=== PATIENT | male | born 1930 | race Caucasian/White ===

== ENCOUNTER 2019-02-15 04:06 | Inpatient (IN) | payer MEDICARE, BC ==
[~2019-02-15] VITALS: Ht 162.6 cm; Wt 54.5 kg
[~2019-02-15 04:06] MED LIST: AMLOPIDINE; ATARAX; ATIVAN 0.50.5 MG/TAB PO; CELEXA10 MG PO; CLINDAMYCIN150 MG PO; DILANTIN 100MG100 MG PO; FLOMAX 0.40.4 MG/CAP PO; LORTAB 5/500 501 TAB PO; MAALOX ANTACID1 TAB PO; NAMENDA 10MG TA10 MG PO; PEPCID 20MG TAB20 MG PO; POTASSIUM CH2 MEQ/ML; REMERON 15M15 MG/TA1 PO; REMERON 15M15 MG/TAB PO; RISPERDAL 0.5M0.5 MG PO; SEROQUEL; SEROQUEL 2525 MG/TAB PO; SEROQUEL100 MG PO; SEROQUEL50 MG PO; TYLENOL 325MG325 MG PO; VIT; VITAMIN C500 MG PO; XANAX .25M0.25 MG/TA PO; XANAX0.25 MG PO; ZANTAC; ZOCOR 20MG20 MG PO; ZOCOR40 MG PO
[2019-02-15] MEDS ORDERED: PEPCID 20MG TAB20 MG PO (04:22)
[2019-02-15] MEDS ORDERED: DESYREL 50MG50 MG PO (04:25)
[2019-02-15 05:10] LABS: BASO # 0.1 (0.0-0.2); BASO % 0.3 % (0.0-2.0); EOS % 0.1 % (0-4.0); GRAN # 12.9 (1.4-6.5); GRAN % 88.5 % (42.2-75.2); HEMATOCRIT 38.3 % (42.0-52.0); LYMPH # 0.7 (1.2-3.4); MEAN CELL VOLUME 96 fl (80.0-100.0); MEAN CORPUSCULAR HEMOGLOBIN 33 pg (27.0-31.0); MEAN CORPUSCULAR HGB CONC 34 g/dl (33.0-37.0); MONO # 0.8 (0.1-0.6); MONO % 5.7 % (1.7-9.3); PLATELET COUNT 221 K/mm3 (130-400); RED BLOOD COUNT 3.98 M/mm3 (4.20-5.60); REDCELL DISTRIBUTION WIDTH-CV 13.5 % (11.5-14.5)
[2019-02-15 05:19] LABS: INR 1.4 (0.8-3.0); PROTHROMBIN TIME 16.6 SECONDS (9.7-12.8)
[2019-02-15 05:23] LABS: ALBUMIN 3.4 gm/dL (3.5-5.0); BILIRUBIN,TOTAL 0.8 mg/dL (0.0-1.0); CALCIUM 8.3 mg/dL (8.4-10.2); CREATININE, serum 0.76 (0.66-1.25); POTASSIUM 3.7 mmol/L (3.4-5.0); TOTAL PROTEIN 6.1 gm/dL (6.4-8.2)
--- NOTE | 2019-02-15 09:30 | NUR ---
arrived on unit per cart from emergency department and radiology, assisted with slide board over and into bed, pulling at right leg and crying out with movement, son and [id number] at bedside, Randall Shoemaker SCRAP HOIST OPERATOR in to visit with family
[2019-02-15 09:51] VITALS: BP 115/54; PULSE 84; TEMP 99.4
--- NOTE | 2019-02-15 10:38 | NUR ---
Initial visit; Patient and his family were receptive to Spray Unit Feeder offering a God's blessings for Humberto.
--- NOTE | 2019-02-15 10:50 | NUR ---
admission assessment completed, Dr Payton and care team in to see patient, neuro assessment completed, patient was able to follow some commands, was medicated with morphine 2mg slow IV for moaning and restless, Dr Payton will notify orthopaedics regarding postponing surgery at this time, family will go home now for a short time
[2019-02-15 11:05] LABS: COLLECTION METHOD CATHETER
[2019-02-15 11:11] LABS: PH 7 (5-8); SQUAMOUS EPITHELIAL 0-2 /hpf; URINE APPEARANCE Clear; URINE BACTERIA None Seen /hpf; URINE BILIRUBIN Negative (NEGATIVE); URINE BLOOD Negative (NEGATIVE); URINE COLOR Yellow; URINE GLUCOSE Negative (NEGATIVE); URINE KETONE Negative (NEGATIVE); URINE LEUKOCYTE ESTERASE Negative (NEGATIVE); URINE NITRATE Negative (NEGATIVE); URINE PROTEIN(semi-quant) Negative (NEGATIVE); URINE RBC 0-2 /hpf
--- NOTE | 2019-02-15 11:41 | NUR ---
resting quietly in bed with eyes closed, resp are quiet and easy and no moaning or grimacing or pulling at right hip
[2019-02-15 12:31] VITALS: BP 144/53; PULSE 96; TEMP 98.7
--- NOTE | 2019-02-15 12:50 | NUR ---
appears to continue to sleep, remains in bed with eyes closed and resp quiet and easy, no grimacing or moaning
--- NOTE | 2019-02-15 13:27 | NUR ---
awake and repositioned up into bed for lunch, is awake and says he is ready to eat, family back at bedside and will assist him as needed
--- NOTE | 2019-02-15 14:45 | NUR ---
appears to be sleeping, in bed with eyes closed, resp quiet and easy, family remains at bedside
--- NOTE | 2019-02-15 16:10 | NUR ---
resting in bed, awakened and neuro checks completed which are difficult to complete with patient's history, son and [id number] at bedside and feel he is at his baseline
[2019-02-15 16:19] VITALS: BP 111/50; PULSE 79; TEMP 98.5
--- NOTE | 2019-02-15 16:22 | NUR ---
Fbi Sharpshooter met with the patient, the patient's son Yaya (ph#[phone]), and patient's daughter in law Tierney (ph#[phone]) to discuss discharge planning. Patient's son and daughter in law answered RODY's questions during intake. Patient lives in [place] with his son and daughter in law. Patient requires some assistance with bathing, which is currently provided by Tierney's granddaughter, Dianelys Santana who is a DISH MAKER. Patient has occasional incontinence, but is mostly independent per son's report. Patient's son states attempts have been made to obtain DME for patient, however patient is not compliant with DME. Patient sees Dr. Hernandez for primary care and obtains medications from [facility]. Patient's son reports Advance Directives have been completed and he will bring a copy in to the hospital. SW discussed possible prison placement with patient's son and daughter in law, who were in agreeance. Patient's son reports patient may be resistant to prison placement. RODY presented the Medicare.gov list of prison facilities. Patient's son chose [facility] as first choice and [facility] as second choice. SW presented the Choice Form and obtained patient's son's signature before placing in patient's chart. SW provided a copy to the patient's son. SW faxed referrals to placement choices.
--- NOTE | 2019-02-15 17:25 | NUR ---
repositioned up in bed and assisted with sitting up to eat supper
--- NOTE | 2019-02-15 17:50 | NUR ---
had supper and tolerated well, is beginning to grimace and move about in bed and appears to be in pain, medicated with morphine 2mg slow IV
--- NOTE | 2019-02-15 18:45 | NUR ---
appears to be sleeping now, bedside shift report given to NONA Thornton
[2019-02-15 20:00] VITALS: BP 116/59; PULSE 76; TEMP 98.3
[2019-02-16] VITALS (13 sets, daily range): BP systolic 78–129; BP diastolic 18–70; PULSE 69–90; TEMP 97.9–98.7
--- NOTE | 2019-02-16 00:29 | NUR ---
PATIENT DOING WELL TONIGHT. NEURO CHECKS DIFFICULT WITH PATIENTS HISTORY. PUPILS ARE PINPOINT AND FIXED. PATIENT MOVES ABOUT IN BED WHEN AGITATED. IV MORPHINE WAS GIVEN AFTER AN EPISODE OF IRRIATION. PATIENT WAS FOUND UNDRESSING HIMSELF IN BED AND TRYING TO TAKE OUT HIS CATHETER. TRIED TO REORIENT PATIENT WITH DIFFICULTY. PATIENT APPEARS TO ONLY BE ABLE TO SAY 'YES'. THERE ARE NO ORDERS FOR NPO, HOWEVER PATIENT WAS MADE NPO PER REPORTS OF PREVIOUS NURSE AND POSSIBLE SURGERY TOMORROW. NOTED DIFFICULTY SWALLOWING SCHEDULED MEDICATIONS. CARDOZO IS DRAINING CLEAR YELLOW URINE. IV TO R FA IS PATENT AND INFUSING D5 1/2NS AT 75 ML/HR. SEE ASSESSMENT. NO FURTHER NEEDS AT THIS TIME. WILL CONTINUE TO MONITOR.
[2019-02-16 07:12] LABS: BASO % 0.3 % (0.0-2.0); EOS % 0.3 % (0-4.0); GRAN # 9.2 (1.4-6.5); GRAN % 79.7 % (42.2-75.2); HEMOGLOBIN 11.1 g/dl (13.5-18.0); MEAN CELL VOLUME 99 fl (80.0-100.0); MEAN CORPUSCULAR HEMOGLOBIN 33 pg (27.0-31.0); MEAN CORPUSCULAR HGB CONC 33 g/dl (33.0-37.0); MEAN PLATELET VOLUME 10.4 fl (7.4-10.4); MONO # 1.2 (0.1-0.6); MONO % 10.3 % (1.7-9.3); PLATELET COUNT 186 K/mm3 (130-400); RED BLOOD COUNT 3.42 M/mm3 (4.20-5.60); REDCELL DISTRIBUTION WIDTH-CV 13.8 % (11.5-14.5)
[2019-02-16 07:13] LABS: HEMATOCRIT 33.7 % (42.0-52.0)
[2019-02-16 07:24] LABS: CALCIUM 7.6 mg/dL (8.4-10.2); CREATININE, serum 0.75 (0.66-1.25); POTASSIUM 3.8 mmol/L (3.4-5.0)
--- NOTE | 2019-02-16 16:46 | NUR ---
[employer] faxed updates to [facility] and [facility]. SW will continue to follow.
--- NOTE | 2019-02-16 21:00 | NUR ---
Patient takes HS meds crushed in applesauce. Has mitts on both hands due to pulling at IV and jacob catheter. Has dry drsgs to right hip with ice pack in place. Pt oriented to self.
[2019-02-17] VITALS (8 sets, daily range): BP systolic 87–129; BP diastolic 42–67; PULSE 82–114; TEMP 97.5–98.6
--- NOTE | 2019-02-17 00:05 | NUR ---
Patient complains of pain. Medicated with [place] 7.5mg 1 tab crushed in pudding. Mitts on both hands continue.
--- NOTE | 2019-02-17 04:30 | NUR ---
Patient taking gown off and pulling at his catheter. Mitts replaced. When asked if he was in pain he stated "yes". Medicated with [place] 7.5mg 1 now.
--- NOTE | 2019-02-17 06:00 | NUR ---
Resting well with mitts on.
[2019-02-17 07:16] LABS: HEMATOCRIT 28.4 % (42.0-52.0); HEMOGLOBIN 9.3 g/dl (13.5-18.0)
--- NOTE | 2019-02-17 13:29 | NUR ---
Patient resting in bed with eyes closed, mitts remain on bilateral hands. Inicision to right hip, gauze in place remains CDI. Bed in lowest position, call light within reach. Reported off to NONA Beasley.
--- NOTE | 2019-02-17 14:57 | NUR ---
Gas Tester spoke with Dejon at [facility] who advised they can accept patient referral. SW contacted [place] at [facility] to notify that first preference accepted. SW attempted to speak with patient, but patient was asleep. SW contacted son, Yaya (ph#[phone]) to update on accepted referral and to speak about IM form. Yaya will be in tomorrow morning to sign the form. RODY will continue to follow.
--- NOTE | 2019-02-17 19:23 | NUR ---
Pt doing ok. Family in room with patient. Stated patient drank 100% of milkshake, few sips of water, and half of ensure shake. Patient is awake, still trying to pull of mits. On o2 at 2l. Has D5 running in left forearm. Does not speak any words. Has 2 sites to right hip, one site covered with gauze and tap, other with bandaid. Both CD&I. Family denies needs at this time. Call light within reach, will continue to monitor
[2019-02-18 04:00] VITALS: BP 118/50; PULSE 95; TEMP 98.4
--- NOTE | 2019-02-18 07:05 | NUR ---
appears to be sleeping, bedside shift report received from NONA Valdivia
[2019-02-18 07:16] LABS: BASO # 0.1 (0.0-0.2); BASO % 0.4 % (0.0-2.0); EOS # 0.2 (0.0-0.7); EOS % 1.3 % (0-4.0); GRAN # 9.4 (1.4-6.5); LYMPH # 1.3 (1.2-3.4); LYMPH % 11.1 % (20.0-51.0); MEAN CELL VOLUME 96 fl (80.0-100.0); MEAN CORPUSCULAR HGB CONC 33 g/dl (33.0-37.0); MEAN PLATELET VOLUME 10.9 fl (7.4-10.4); MONO # 0.9 (0.1-0.6); MONO % 7.8 % (1.7-9.3); PLATELET COUNT 155 K/mm3 (130-400); RED BLOOD COUNT 2.65 M/mm3 (4.20-5.60); REDCELL DISTRIBUTION WIDTH-CV 13.4 % (11.5-14.5)
[2019-02-18 07:27] LABS: HEMATOCRIT 25.5 % (42.0-52.0); HEMOGLOBIN 8.4 g/dl (13.5-18.0); MEAN CORPUSCULAR HEMOGLOBIN 32 pg (27.0-31.0)
[2019-02-18 07:28] VITALS: BP 108/53; PULSE 102; TEMP 101.2
--- NOTE | 2019-02-18 07:30 | NUR ---
assisted with sitting up in bed and assisted him with having breakfast, only had small amount and approx 200ml ensure, full assessment completed at this time
[2019-02-18 07:33] LABS: CALCIUM 7.2 mg/dL (8.4-10.2); CREATININE, serum 0.86 (0.66-1.25); POTASSIUM 3.7 mmol/L (3.4-5.0)
--- NOTE | 2019-02-18 08:49 | NUR ---
awake now resting in bed, son and [id number] at bedside now, physical therapy in to assist him with tgetting out of bed
--- NOTE | 2019-02-18 10:00 | NUR ---
IV site leaking and discontinued by student RN, gerardo removed, son and ISABELLE remain at bedside and will notify staffif he tries to remove catheter
--- NOTE | 2019-02-18 10:07 | NUR ---
reviewed assessment completed by student and in agreement with that assessment
--- NOTE | 2019-02-18 10:21 | NUR ---
Vancomycin Initial Dosing Pharmacy Note Ordering provider: Jono Fuentes MD Indication/duration: EMPIRIC, FEVER W/ RECENT SURGERY Relevant comorbidities: LABS: SCr 0.86, CrCl ~30, WBC 11.9, TEMP 101.2 F Recommendation: VANCOMYCIN 17 MG/KG Loading dose: NONE Maintenance dose: 750 mg every 24 hours Trough goal: 15-20 ug/mL, TROUGH 02/22 @ 1000.
--- NOTE | 2019-02-18 10:30 | NUR ---
Dr Payton and care team in to see patient, new orders received, IV started by student RN and jacob clamped in order to obtain UA, pateint was cooperative while IV started
--- NOTE | 2019-02-18 10:57 | NUR ---
Head End Desizing Machine Operator met with son, Yaya who advised discharge would possibly occur on Thursday. RODY presented IM form, but explained another one may need to be signed if discharge does occur on Thursday. Yaya understood rights and provided signature. RODY placed original in chart and provided copy to Yaya. RODY will continue to follow.
--- NOTE | 2019-02-18 11:20 | NUR ---
Sterile UA drawn from jacob cath. Specimen sent to lab. Jacob discontinued after. Patient handled well.
[2019-02-18 11:21] LABS: MUCOUS Present /lpf; PH 6 (5-8); SQUAMOUS EPITHELIAL None Seen /hpf; URINE APPEARANCE Clear; URINE BACTERIA None Seen /hpf; URINE BILIRUBIN Negative (NEGATIVE); URINE BLOOD 2+ (NEGATIVE); URINE COLOR Yellow; URINE GLUCOSE Negative (NEGATIVE); URINE KETONE Negative (NEGATIVE); URINE LEUKOCYTE ESTERASE Negative (NEGATIVE); URINE NITRATE Negative (NEGATIVE); URINE PROTEIN(semi-quant) 1+ (NEGATIVE); URINE RBC >50 /hpf; URINE UROBILINOGEN >=4.0 mg/dL (NEGATIVE)
[2019-02-18 11:29] LABS: COLLECTION METHOD CLEAN CATCH
[2019-02-18 12:24] VITALS: BP 11/54; BP 111/54; PULSE 89; TEMP 98.7
--- NOTE | 2019-02-18 12:57 | NUR ---
ate almost 100% of lunch with assistance, then assisted back to bed for chest xray, he tried to assist with walking to bed and scooting self up in bed,
--- NOTE | 2019-02-18 13:38 | NUR ---
Patient currently resting in bed with eyes closed. No s/s of pain noted. O2 via NC at 2L. Mitts remain on hands bilaterally. Gauze and band-aid to Right hip remain CDI. Bed in lowest position, call light alex stallings. Reported off to Sammie CASTELLANO.
--- NOTE | 2019-02-18 14:30 | NUR ---
appears to be sleeping, awakened and assisted him with having a small container of chocolate ice cream and remainder of ensure, was able to suck on the straw to take the ensure
--- NOTE | 2019-02-18 15:35 | NUR ---
has been unable to void, bladder scan reveals approx 500ml urine in bladder, straight cath completed and 600ml clear yellow urine returned, tolerated procedure well
[2019-02-18 15:40] VITALS: BP 115/43; PULSE 130; PULSE 94; TEMP 97.8
--- NOTE | 2019-02-18 16:35 | NUR ---
If patient discharged over the weekend, [facility] cannot transport. [facility] can accept and transport.
--- NOTE | 2019-02-18 17:56 | NUR ---
sitting up in bed being fed supper by MAIL MACHINE OPERATOR is eating well, family at bedside
--- NOTE | 2019-02-18 18:00 | NUR ---
started to choke while eating vegetables and had some emesis, assisted up to recliner and care provided, was cooperative while assisting him up
--- NOTE | 2019-02-18 19:00 | NUR ---
bedside shift report given to NONA Linn
[2019-02-18 19:27] VITALS: BP 126/63; PULSE 107; TEMP 99
--- NOTE | 2019-02-18 21:00 | NUR ---
Pt. laying in bed. Pt. is alert and confused. Difficult to deturmine orientations d/t non-verbal hx. of strokes. IV to rt. forearm patent, IV fluids infusing per orders. Dressing to rt. hip CDI. Pt. does not appear to be in pain at this time. Call light within reach, Bed alarm on.
[2019-02-19 00:05] VITALS: BP 143/49; PULSE 110; TEMP 99.1
--- NOTE | 2019-02-19 00:32 | NUR ---
Pt. bladderscanned. Pt. has not urinated throughout shift. Bladder scan reported 450 ml in bladder at this time. Straight cathed pt. able to get 400 mls out. Pt. tolerated well. Pt. able to voice "yes" when asked if pt. was hurting. Pt. given 1 ultram for pain. Pt. does not seem to be as agitated after straight cathing. Call light within reach, bed alarm on.
[2019-02-19 06:41] LABS: BASO % 0.3 % (0.0-2.0); EOS # 0.1 (0.0-0.7); EOS % 1.1 % (0-4.0); GRAN # 8.4 (1.4-6.5); GRAN % 80.8 % (42.2-75.2); LYMPH % 9.2 % (20.0-51.0); MEAN CELL VOLUME 95 fl (80.0-100.0); MEAN CORPUSCULAR HGB CONC 34 g/dl (33.0-37.0); MEAN PLATELET VOLUME 11.3 fl (7.4-10.4); MONO # 0.8 (0.1-0.6); MONO % 7.9 % (1.7-9.3); PLATELET COUNT 166 K/mm3 (130-400); RED BLOOD COUNT 2.32 M/mm3 (4.20-5.60); REDCELL DISTRIBUTION WIDTH-CV 13.2 % (11.5-14.5)
[2019-02-19 06:45] LABS: HEMATOCRIT 22.1 % (42.0-52.0); HEMOGLOBIN 7.4 g/dl (13.5-18.0); MEAN CORPUSCULAR HEMOGLOBIN 32 pg (27.0-31.0)
[2019-02-19 06:47] LABS: ALBUMIN 2.1 gm/dL (3.5-5.0); BILIRUBIN,TOTAL 0.6 mg/dL (0.0-1.0); CALCIUM 7.1 mg/dL (8.4-10.2); CREATININE, serum 0.73 (0.66-1.25); POTASSIUM 3.5 mmol/L (3.4-5.0); TOTAL PROTEIN 4.5 gm/dL (6.4-8.2)
[2019-02-19 08:08] VITALS: BP 119/52; PULSE 95; TEMP 99.9
--- NOTE | 2019-02-19 10:00 | NUR ---
Patient resting in bed at this time. Patient rouses easily, but returns to sleep. Previous shift reports that the patient has been straight cathed for urine retention twice in the last 12 hours, the last time at 0000, and patient is still dry. Bladder scan shows approximatley 500ml in the bladder, patient does not appear uncomfortable. Called hospitalist for further orders, recieved TORB for jacob catheter placement for urine retention. Placed a 16f coude catheter, approximately 650ml of clear yellow urine returned upon placement, significant resistance felt during placement from the prostate. Patient tolerated procedure well. Patient is nonverbal but does not seem to be in pain or distress. Dressings on right hip are CDI.
[2019-02-19 12:18] VITALS: BP 126/47; PULSE 89; TEMP 98.8
[2019-02-19 16:08] VITALS: BP 106/46; PULSE 85; TEMP 97.8
[2019-02-19 16:23] VITALS: BP 127/41; PULSE 89; TEMP 98.1
--- NOTE | 2019-02-19 18:24 | NUR ---
Patient c/o pain this afternoon, administered PRN medication per order. Patient appeared more comfortable after medication administration. Patient has eaten meals with assistance of staff today, however he only eats 15-20% of his meal before refusing. Patient has continued to run a low grade fever today, but it has not spiked today. Patient currently resting comfortably, bed alarm on, visible from nurses station.
[2019-02-19 19:50] VITALS: BP 119/52; PULSE 90; TEMP 98.2
--- NOTE | 2019-02-19 19:56 | NUR ---
Lying in bed. Repositioned and pillow placed below and to side of right leg. Takes evening medication without difficulty. Escobar draining clear yellow urine. Dressing to right hip CDI. Bruising noted to right hip and right flank area.
--- NOTE | 2019-02-19 21:44 | NUR ---
Lying in bed with eyes closed. Respirations even and unlabored. No signs or symptoms of discomfort noted.
--- NOTE | 2019-02-20 02:10 | NUR ---
IV site in right forearm unable to flush. Site dc'd with catheter intact. Applied 2x2 to site and reinforced with tape. IV restarted in right outer forearm times two sticks. Blood flash returned, site flushes without difficulty. Site reinforced with tegaderm and tape. Repositioned patient in bed. Catheter care provided. Patient took several drinks of water. SpO2 88% on 2L/NC. Oxygen increased to 3L/NC and SpO2 increases to 93%.
[2019-02-20 02:26] VITALS: BP 119/49; PULSE 92; TEMP 99.5
--- NOTE | 2019-02-20 04:08 | NUR ---
Lying in bed with eyes closed. Respirations even and unlabored. No signs or symptoms of discomfort noted.
[2019-02-20 06:54] LABS: BASO # 0.1 (0.0-0.2); BASO % 0.5 % (0.0-2.0); EOS # 0.2 (0.0-0.7); EOS % 1.7 % (0-4.0); GRAN # 7.8 (1.4-6.5); GRAN % 77.3 % (42.2-75.2); LYMPH # 1.1 (1.2-3.4); LYMPH % 11.2 % (20.0-51.0); MEAN CELL VOLUME 94 fl (80.0-100.0); MEAN CORPUSCULAR HGB CONC 34 g/dl (33.0-37.0); MEAN PLATELET VOLUME 11.6 fl (7.4-10.4); MONO # 0.9 (0.1-0.6); MONO % 8.8 % (1.7-9.3); PLATELET COUNT 173 K/mm3 (130-400); RED BLOOD COUNT 2.46 M/mm3 (4.20-5.60); REDCELL DISTRIBUTION WIDTH-CV 13.4 % (11.5-14.5)
[2019-02-20 07:01] LABS: HEMOGLOBIN 7.9 g/dl (13.5-18.0); MEAN CORPUSCULAR HEMOGLOBIN 32 pg (27.0-31.0)
[2019-02-20 07:04] LABS: ALBUMIN 2.4 gm/dL (3.5-5.0); BILIRUBIN,TOTAL 0.8 mg/dL (0.0-1.0); CALCIUM 7.3 mg/dL (8.4-10.2); CREATININE, serum 0.65 (0.66-1.25); POTASSIUM 4.2 mmol/L (3.4-5.0)
[2019-02-20 07:34] VITALS: BP 116/69; PULSE 94; TEMP 98.6
--- NOTE | 2019-02-20 09:00 | NUR ---
Patient resting in bed at this time. Patient does not appear agitated and does not respond with an affirmitive when asked if he is in pain. Patient takes his PO medications with no difficulties. Escobar remains in place draining clear, yellow urine. Patient has no obvious needs at this time, bed alarm on, patient observable from the nurses' station.
[2019-02-20 11:52] VITALS: BP 94/63; PULSE 70; TEMP 98.2
[2019-02-20 16:11] VITALS: BP 120/67; PULSE 99; TEMP 98.5
--- NOTE | 2019-02-20 18:15 | NUR ---
Restless and pulling at bedding. Nodded yes when asked about pain. Medicated with Ultram. Poor appetite.
--- NOTE | 2019-02-20 19:12 | NUR ---
Lying in bed with eyes open. Dressing to right hip CDI. Bruising noted to right hip. Repositioned patient. Right leg propped on pillow and support pillow placed beside right leg. Catheter draining clear yellow urine.
[2019-02-20 19:36] VITALS: BP 113/50; PULSE 91; TEMP 98.9
--- NOTE | 2019-02-20 21:40 | NUR ---
Lying in bed with eyes open. Catheter care performed. Patient smiles when spoken to. Repositioned in the bed. Tegaderm dressing that was to right hip has come off. Bruising noted to right side of hip to mid thigh and up into flank area. Where the dressing was, blisters noted. Incision well approximated, no redness or drainage noted.
[2019-02-20 23:07] VITALS: BP 116/50; PULSE 89; TEMP 98.8
[2019-02-21] VITALS (9 sets, daily range): BP systolic 97–130; BP diastolic 50–83; PULSE 76–102; TEMP 98–98.8
--- NOTE | 2019-02-21 01:06 | NUR ---
Lying in bed with eyes open. Restless moving arms. Patient nonverbal so unable to express what is needed. When patient is asked if he is having pain he makes direct eye contact and his eyes get bigger. Administer pain medication as prescribed. Repositioned onto left side. Provided water to patient.
--- NOTE | 2019-02-21 02:15 | NUR ---
Attempt made to get patient out of bed onto commode as patient keeps touching stomach and when asked if he needs to use the commode patient says "Yah". The entire time getting patient out of bed he is hitting his hands at staff and pushing backwards. Set on commode and the patient continues to hit arms around and not sit still. Patient was able to pass gas while on the commode. Returned patient to bed. Propped right leg up on pillow and placed another pillow beside right leg to give support. Catheter draining clear yellow urine. Patient takes a few sips of water.
--- NOTE | 2019-02-21 03:24 | NUR ---
SpO2 80's. Patient breathing through mouth, not through nose. Oxy mask applied and SpO2 increases to 95%.
--- NOTE | 2019-02-21 03:41 | NUR ---
Lying in bed with eyes closed. Respirations even and unlabored. SpO2 stable at 95% on 3L via Oxy mask. No signs or symptoms of discomfort noted.
--- NOTE | 2019-02-21 06:17 | NUR ---
Lying in bed with eyes open. Keeps removing Oxymask and staff keeps reapplying. Significant amount of bruising to right hip and flank area. Patient winces when right hip is touched and looked at. Incision open to air. Edges well approximated. Blistering noted around incision site where previous dressing was.
[2019-02-21 07:10] LABS: BASO % 0.3 % (0.0-2.0); EOS # 0.1 (0.0-0.7); EOS % 0.6 % (0-4.0); GRAN # 9.8 (1.4-6.5); GRAN % 86.1 % (42.2-75.2); LYMPH # 0.6 (1.2-3.4); LYMPH % 5.2 % (20.0-51.0); MEAN CELL VOLUME 95 fl (80.0-100.0); MEAN CORPUSCULAR HGB CONC 34 g/dl (33.0-37.0); MEAN PLATELET VOLUME 10.5 fl (7.4-10.4); MONO # 0.8 (0.1-0.6); MONO % 7.1 % (1.7-9.3); PLATELET COUNT 237 K/mm3 (130-400); RED BLOOD COUNT 2.17 M/mm3 (4.20-5.60); REDCELL DISTRIBUTION WIDTH-CV 13.4 % (11.5-14.5)
[2019-02-21 07:24] LABS: HEMATOCRIT 20.6 % (42.0-52.0); HEMOGLOBIN 6.9 g/dl (13.5-18.0); MEAN CORPUSCULAR HEMOGLOBIN 32 pg (27.0-31.0)
[2019-02-21 07:29] LABS: CALCIUM 7.4 mg/dL (8.4-10.2); CREATININE, serum 0.68 (0.66-1.25); POTASSIUM 3.7 mmol/L (3.4-5.0)
--- NOTE | 2019-02-21 08:00 | NUR ---
PATIENT IS ALERT BUT VERY CONFUSED. 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 RAISED HOB, CRUSHED AM MEDS AND GAVE IN APPLESAUCE. PATIENT TOLERING MECHANICAL SOFT DIET. A&P LUNG GAN ARE DEMINISHED AND WEAK. SHAFTING WORKER REPORTS PATIENT OXYGEN SATS DROPPED INTO 80'S LAST NIGHT AND WAS PUT ON OXYMASK. APPLIE NASAL CANNULA FOR BREAKFAST. 02 SATS CURRENTLY IN LOW 90'S ON 2L PER NC. ALL OVER VSS. NOTED AM HGB OF 6.9, CALLED RESULT TO HOSPITALIST. SEE ORDERS FOR BLOOD TRANSFUSION. NOTED LOTS OF ECCYMOSIS AROUND POST OP HIP INCISIONS. RIGHT HIP INCISIONS X2 CD&I WITH GAUZE & TEGA. TEDS & SCD'S TO BLE. CARDOZO TO DEPENDENT DRAINAGE WITH MOD AMOUNTS OF CLEAR YELLOW URINE. RIGHT FORARM IV TO INT. HEAD TO TOE ASSESSMENT COMPLETE. CALL LIGHT IN REACH. PATIENT PLANNING TO POSSIBLY DISCHARGE LATER TODAY TO [facility].
--- NOTE | 2019-02-21 09:20 | NUR ---
PHYSICAL THERAPY AT BEDSIDE.
--- NOTE | 2019-02-21 12:43 | NUR ---
STARTED BLOOD TRANSFUSION PER ORDERS. VSS. WILL MONITOR.
--- NOTE | 2019-02-21 14:40 | NUR ---
NOTED RIGHT FORARM IV SITE HAS BLOWN DURING BLOOD TRANSFUSION. PATIENT IS VERY FIDGETY WITH MITTS TO BUE. PATIENT RECEIVED NEARLY THE FULL UNIT OF BLOOD. APPROX 50CC OF BLOOD TRANSFUSION LEFT WHEN IV SITE INFILTRATED. COVERED SITE WITH 4X4 GAUZE & COBAN. CALLED AIVS TO TRY AND RESTART IV. PATIENT IS A DIFFICULT IV START.
--- NOTE | 2019-02-21 14:55 | NUR ---
Pediatrics Teacher spoke with patient RN, Leola who advised plan is for patient to discharge tomorrow if stable. RODY contacted patient's son, Yaya to relay the information. Yaya to sign IM tomorrow morning. RODY contacted Dejon at [facility] to relay information about discharge. RODY faxed updates to [facility]. RODY to continue to follow.
--- NOTE | 2019-02-21 16:55 | NUR ---
PATIENT VERY AGGITATED AND SITTING UP IN BED, PULLING OFF HIS GOWN AND SPILLING THE STUFF OFF HIS BEDSIDE TABLE. GAVE PRN MORPHINE FOR PAIN.
--- NOTE | 2019-02-21 19:26 | NUR ---
Patient restless, has mitts on to protect jacob catheter and IV site. Medicated with [place] 7.5mg 2 tabs with HS meds. Meds crushed in pudding. Oxygen changed from mask to NC. Bed alarm on.
--- NOTE | 2019-02-21 23:50 | NUR ---
PATIENT RESTLESS, APHASIC, TRYING TO TAKE OXYGEN OFF. MEDICATED WITH NORCO 7.5MG 2 TABS AT THIS TIME FOR PAIN.
[2019-02-22] VITALS (7 sets, daily range): BP systolic 101–125; BP diastolic 46–67; PULSE 55–112; TEMP 97.5–98.3
--- NOTE | 2019-02-22 05:09 | NUR ---
Has rested well with administration of [place].
--- NOTE | 2019-02-22 06:20 | NUR ---
Medicated with [place] 7.5mg 2 tabs at this time for pain as evidenced by restless behavior and grimacing.
--- NOTE | 2019-02-22 06:48 | NUR ---
awake and restless in bed, bedside shift report received from NONA Gallardo
--- NOTE | 2019-02-22 07:30 | NUR ---
continues to be restless in bed, repositioned up in bed and assisted with eating breakfast, also given scheduled am meds which he takes without difficulty, mitts remain on hands bilaterally to stop him from pulling at INT and jacob catheter
[2019-02-22 07:51] LABS: BASO % 0.3 % (0.0-2.0); EOS # 0.2 (0.0-0.7); EOS % 1.4 % (0-4.0); GRAN # 9.2 (1.4-6.5); LYMPH % 8.7 % (20.0-51.0); MEAN CELL VOLUME 96 fl (80.0-100.0); MEAN CORPUSCULAR HGB CONC 33 g/dl (33.0-37.0); MEAN PLATELET VOLUME 10.3 fl (7.4-10.4); MONO # 1.2 (0.1-0.6); MONO % 9.9 % (1.7-9.3); PLATELET COUNT 308 K/mm3 (130-400); RED BLOOD COUNT 2.68 M/mm3 (4.20-5.60); REDCELL DISTRIBUTION WIDTH-CV 13.9 % (11.5-14.5)
[2019-02-22 07:54] LABS: HEMATOCRIT 25.6 % (42.0-52.0); HEMOGLOBIN 8.5 g/dl (13.5-18.0); MEAN CORPUSCULAR HEMOGLOBIN 32 pg (27.0-31.0)
[2019-02-22 07:58] LABS: CALCIUM 7.7 mg/dL (8.4-10.2); CREATININE, serum 0.63 (0.66-1.25); MAGNESIUM 2.4 mg/dL (1.6-2.3); POTASSIUM 3.4 mmol/L (3.4-5.0)
--- NOTE | 2019-02-22 08:45 | NUR ---
family in to visit, full assessment completed, see interventions for further info, has large amount bruisng down right chest side and right hip, also to right arm,
[2019-02-22] MEDS ORDERED: OMNICEF 300MG300 MG PO (08:54)
[2019-02-22] MEDS ORDERED: FERRO-TIME325 MG PO (08:54)
[2019-02-22] MEDS ORDERED: TYLENOL 325MG325 MG PO (08:55)
[2019-02-22] MEDS ORDERED: DULCOLAX S10 MG/SUPP RC (08:57)
[2019-02-22] MEDS ORDERED: COLACE 100100 MG/CAP PO (08:57)
[2019-02-22] MEDS ORDERED: NORCO 325 MG-51 TAB PO (08:58)
--- NOTE | 2019-02-22 09:08 | NUR ---
Dr Santo and care team in to see patient, O2 off per Dr Santo
--- NOTE | 2019-02-22 09:45 | NUR ---
very restless in bed, am hygiene provided, he keeps pulling at blankets and unsure of what he needs, when hygiene completed, covered with a warm blanket and will try and let him rest
--- NOTE | 2019-02-22 10:17 | NUR ---
Wood Carving Machine Operator met with patient and patient's son, Yaya following clinical rounds. Patient is to discharge today. RODY presented IM form to Yaya who understood and signed. RODY spoke with NONA Cochran to confirm patient does not require oxygen. RODY faxed discharge orders and contacted Dejon at [facility]. Dejon advised that patient mits may be considered a restraint which could affect acceptance of referral. RODY spoke with NONA Cochran who advised patient has been pulling out his catheter, which he requires. RODY left Dejon a message and will continue to follow to ensure safe discharge.
--- NOTE | 2019-02-22 10:30 | NUR ---
remains very restless in bed and pulling at covers and gown, Dr Santo notified, medicated with seroquel 25mg po O2 sats high 80s on room air
--- NOTE | 2019-02-22 11:02 | NUR ---
continues to move about in bed, when right leg is moved he calls out and says collin, medicated with hydrocodone 7.5mg 1 tab
--- NOTE | 2019-02-22 11:10 | NUR ---
Industrial Robotics Mechanic spoke with Kenney at [facility], which is paient and family's second preference and faxed over updates as first preference may not be able to accept. SW contacted patient's son, Yaya to provide update. SW is awaiting response from first preference. SW updated patient RN, Sammie. SW to continue to follow.
--- NOTE | 2019-02-22 12:00 | NUR ---
called to room and patient had a large amount of undigested projectile emesis, continues to thrash about in bed, DOLL REPAIRER will remain at bedside
--- NOTE | 2019-02-22 12:02 | NUR ---
spoke with Dr Santo regarding patients continued agitation, will hold discharge today, will talk with Danette Trejo in palliative care
--- NOTE | 2019-02-22 12:29 | NUR ---
Left message for son, Yaya on phone. Will try to talk with him in am as he is not available at this time. Primary nurse, Sammie, advised of plan.
--- NOTE | 2019-02-22 12:42 | NUR ---
is resting quietly in bed now with eyes open, APPLE SORTER remains at bedside
--- NOTE | 2019-02-22 13:29 | NUR ---
PRODUCTION ZONE LEADER remains with patietn and states he had another mod amount undigested emesis
--- NOTE | 2019-02-22 13:49 | NUR ---
Dr Santo notified of patient's emesis
--- NOTE | 2019-02-22 13:58 | NUR ---
Dr Santo was in to see patient
--- NOTE | 2019-02-22 14:28 | NUR ---
Decontaminator spoke with Kenney at [facility] who had questions about patient care needs. RODY was notified by patient RN, Sammie that discharge will not occur today. SW contacted patient's son, Yaya to provide update. SW to continue to follow.
--- NOTE | 2019-02-22 15:00 | NUR ---
IV started to right forearm with someone holding his arm, tolerated well, iV fluids started
--- NOTE | 2019-02-22 15:29 | NUR ---
Platform Material Handling Supervisor contacted both [facility] and [facility] to notify that discharge will not occur today.
--- NOTE | 2019-02-22 15:30 | NUR ---
resting in bed, is restless at times and then rests with eyes closed
--- NOTE | 2019-02-22 16:33 | NUR ---
radiology in and abdominal xray completed
--- NOTE | 2019-02-22 17:45 | NUR ---
is in bed and resting quietly at intervals, then awakens and moves about in bed, IV fluids infusing
--- NOTE | 2019-02-22 19:01 | NUR ---
bedside shift report given to NONA Thomson
--- NOTE | 2019-02-22 22:22 | NUR ---
Pt very agitated at beginning of shift. Continues to pull and move around in bed. Moans out but does not communicate. PRN norco given to patient with seems to be no relief.
--- NOTE | 2019-02-22 23:58 | NUR ---
Pt restless in bed, moaning out. PRN morphine given to pt.
[2019-02-23] VITALS: BP 105/89; PULSE 87; TEMP 97.5
--- NOTE | 2019-02-23 02:07 | NUR ---
Pt increasingly combative. Very restless. Is not able to answer yes/no questions. Bruising on right side of hip/abdomen very dark purple in color.
--- NOTE | 2019-02-23 02:47 | NUR ---
Elidia notified of pts condition. PRN seroquel ordered
[2019-02-23 04:00] VITALS: BP 126/64; PULSE 80; TEMP 98
--- NOTE | 2019-02-23 04:57 | NUR ---
Pt very restless, hollering out. Gave seroquel per PRN order. will continue to monitor
[2019-02-23 07:09] LABS: BASO % 0.2 % (0.0-2.0); GRAN # 13.8 (1.4-6.5); LYMPH # 0.7 (1.2-3.4); LYMPH % 4.5 % (20.0-51.0); MEAN CELL VOLUME 96 fl (80.0-100.0); MEAN CORPUSCULAR HGB CONC 33 g/dl (33.0-37.0); MEAN PLATELET VOLUME 10.3 fl (7.4-10.4); MONO # 1.2 (0.1-0.6); MONO % 7.7 % (1.7-9.3); PLATELET COUNT 386 K/mm3 (130-400); RED BLOOD COUNT 2.63 M/mm3 (4.20-5.60); REDCELL DISTRIBUTION WIDTH-CV 14.1 % (11.5-14.5)
[2019-02-23 07:16] LABS: HEMATOCRIT 25.2 % (42.0-52.0); HEMOGLOBIN 8.4 g/dl (13.5-18.0); MEAN CORPUSCULAR HEMOGLOBIN 32 pg (27.0-31.0)
[2019-02-23 07:33] LABS: ALBUMIN 2.8 gm/dL (3.5-5.0); BILIRUBIN,TOTAL 1.3 mg/dL (0.0-1.0); CREATININE, serum 0.7 (0.66-1.25); MAGNESIUM 2.6 mg/dL (1.6-2.3); POTASSIUM 3.7 mmol/L (3.4-5.0); TOTAL PROTEIN 5.6 gm/dL (6.4-8.2)
[2019-02-23 09:10] VITALS: BP 130/88; PULSE 70; TEMP 98.2
--- NOTE | 2019-02-23 10:20 | NUR ---
I have spoken with son Yaya by phone twice this morning about goals of care and concerns with his current behaviors. Yaya is very clear that he believes that his father is not wanting to have catheter, has not had voiding problems previously, and is fightinging wearing the mitts. he believes that if the catheter and mitts could be discontinued, that his father will be much less agitated and willing to work with therapy more. When I presented this to Dr Santo, he was willing to try this approach but wanted son to be aware that this may allow his father to remove his IV and therefore stop hydration and antibiotic administration. Dr Santo is very concerned with the downhill spiral pt has demonstrated and this was also shared with Yaya. Family meeting is set for 1pm on 02/24/19 to further discuss goals of care and how pt has responded.
--- NOTE | 2019-02-23 10:38 | NUR ---
PT INCREASING AGITATION THIS AM. IV ATIVAN GIVEN PRIOR TO MRI. PT RETURNED FROM MRI VERY DROWSEY, AROUSES TO VERBAL THEN FALLS BACK ASLEEP. NEW ORDERS RECIEVED FROM DR GIVENS. JOSELUIS SMART RN HAS FAMILY MEETING SHEDULED FOR TOMMORROW.
[2019-02-23 13:02] VITALS: BP 107/47; PULSE 85; TEMP 98.1
--- NOTE | 2019-02-23 13:39 | NUR ---
CARDOZO CATHETER DISCONTINUED PER ORDERS OF DR. GIVENS, IV TO RFA, SAMIA REMOVED,. PT SLEEPING THROUGH PROCEEDURE.
[2019-02-23 16:07] VITALS: BP 138/61; PULSE 90; TEMP 98.3
--- NOTE | 2019-02-23 16:23 | NUR ---
PT SATS IN LOW 70'S HIGH 60'S OM PLACED AND O2 INCREASED TO 5L. ARIS LIZAMA NOTIFIED DR GIVENS AND HE IS ON FLOOR.
--- NOTE | 2019-02-23 16:27 | NUR ---
Sausage Canner was notified by Danette Palliative RN that patient's son, Yaya will be here at 1:00pm tomorrow for a meeting to review care goals. SW will be in attendance. SW faxed updates to [employer] and [facility] [employer]. SW to continue to follow.
[2019-02-23 17:15] LABS: ARTERIAL BLD GAS O2 SATURATION 93.2 % (92-100); ARTERIAL BLOOD GAS BASE EXCESS -1.1 (-2-2); ARTERIAL BLOOD GAS HCO3 22.1 meq/L (22-26); ARTERIAL BLOOD GAS PCO2 31.6 mmHg (35-45); ARTERIAL BLOOD GAS PO2 68.1 mmHg (80-100); ARTERIAL BLOOD GAS pH 7.46 (7.35-7.45)
[2019-02-23 20:07] VITALS: BP 129/66; PULSE 68; TEMP 98.5
--- NOTE | 2019-02-23 22:05 | NUR ---
Pt has been resting in bed since beginning of shift. Pt 02 sats stable, and received breathing tx from respiratory. No other issues noted. Will continue to monitor
[2019-02-24] VITALS (8 sets, daily range): BP systolic 116–138; BP diastolic 50–75; PULSE 68–97; TEMP 97.3–98.4
--- NOTE | 2019-02-24 00:31 | NUR ---
prn ativan given per Dr. Santo as patient woke up and was extremely agitated. O2 sats running in low 90's. Will continue to monitor
--- NOTE | 2019-02-24 06:39 | NUR ---
pt awake, able to communicate some. State he was having pain in his hip. stated he wanted some pain medicine. will give pain meds
--- NOTE | 2019-02-24 06:42 | NUR ---
PRN MORPHIINE GIVEN TO PATIENT P
--- NOTE | 2019-02-24 07:02 | NUR ---
Report from Claudette CASTELLANO.
--- NOTE | 2019-02-24 07:08 | NUR ---
REPORT FROM LYLE CASTELLANO.
[2019-02-24 07:16] LABS: MEAN CELL VOLUME 99 fl (80.0-100.0); MEAN CORPUSCULAR HGB CONC 32 g/dl (33.0-37.0); MEAN PLATELET VOLUME 10.3 fl (7.4-10.4); RED BLOOD COUNT 3.03 M/mm3 (4.20-5.60); REDCELL DISTRIBUTION WIDTH-CV 14.6 % (11.5-14.5)
[2019-02-24 07:22] LABS: HEMOGLOBIN 9.6 g/dl (13.5-18.0); MEAN CORPUSCULAR HEMOGLOBIN 32 pg (27.0-31.0); PLATELET COUNT 492 K/mm3 (130-400)
[2019-02-24 07:31] LABS: BILIRUBIN,TOTAL 1.3 mg/dL (0.0-1.0); CREATININE, serum 0.69 (0.66-1.25); POTASSIUM 3.4 mmol/L (3.4-5.0); TOTAL PROTEIN 6.1 gm/dL (6.4-8.2)
[2019-02-24 08:00] LABS: BAND 7 % (0-10); LYMPHOCYTE 2 % (20.0-51.0); NEUTROPHILS 91 % (42.0-75.2); PLATELET ESTIMATE NORMAL (NORMAL); SCHISTOCYTES 1+
--- NOTE | 2019-02-24 09:29 | NUR ---
Yard Hand faxed updates to [facility] and [facility].
--- NOTE | 2019-02-24 09:44 | NUR ---
Health Information Internship spoke to Dejon at [facility] who advised due to patient decline, they would not be able to accept at this time.
[2019-02-24 09:55] LABS: INR 1.7 (0.8-3.0); PROTHROMBIN TIME 20.1 SECONDS (9.7-12.8)
--- NOTE | 2019-02-24 13:37 | NUR ---
Family meeting held with Lazara Davidson with rn social services and Danette Sauer RN with son Yaya and his significant other. Son is very firm in wanting to give his father a chance to "fight and get better" but at the same time verbalizes understanding that this will be a long process with "bumps in the road". 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 He is very open to his dad going to the [facility] for a more extended recovery recognizing the many issues that he is dealing with. While he is very hopeful that his father will fight to recover he seems very realistic that this may not be possible and he would not want his father on a ventilator--"just keep him comfortable and let him do what he will do". Son expressed appreciation for the efforts made to this point and will continue to work with the team for the best outcome for his father.
--- NOTE | 2019-02-24 16:44 | NUR ---
Pack Puller attended a family meeting which included Danette, Palliative RN and Hospitalist. Possible discharge to [facility] was discussed. Patient to be put on tele. RODY sent referral to [facility] and made contact with Elliot in regards to referral. SW to continue to follow.
--- NOTE | 2019-02-24 16:45 | NUR ---
PT UNABLE TO VOID, BLADDER SCANNED AND FOUND >600 MLS, STRAIGHT CATH PREFOMED AND DRAINED 500 MLS CONCENTRATED URINE.
--- NOTE | 2019-02-24 16:47 | NUR ---
PT TOLERATED PROCEEDURE PREFORMED BY ADN STUDENT WELL.
--- NOTE | 2019-02-24 21:26 | NUR ---
Pt resting in bed, pm meds given. Patient more alert this evening. Will continue to monitor
[2019-02-25] VITALS (14 sets, daily range): BP systolic 116–131; BP diastolic 50–80; PULSE 68–150; TEMP 97–97.9; O2SAT 36–94
--- NOTE | 2019-02-25 03:31 | NUR ---
Bladder scanned patient, showed 197ml. Will not straight cath at this time
--- NOTE | 2019-02-25 03:50 | NUR ---
Pt overall doing well. Mentation has improved, patient able to answer yes and no questions. No issues with agitation. Patient has slept most of night. No issues.
--- NOTE | 2019-02-25 05:03 | NUR ---
Pt ate about half of applesauce. Drinking water by himelf with straw
[2019-02-25 06:37] LABS: MEAN CELL VOLUME 100 fl (80.0-100.0); MEAN CORPUSCULAR HGB CONC 32 g/dl (33.0-37.0); PLATELET COUNT 516 K/mm3 (130-400); RED BLOOD COUNT 2.75 M/mm3 (4.20-5.60); REDCELL DISTRIBUTION WIDTH-CV 15.3 % (11.5-14.5)
--- NOTE | 2019-02-25 06:37 | NUR ---
Pt 02 dropped to 74 on 5L. Respiratory called and gave pt PRN breathing tx. O2 went up to 96%.
[2019-02-25 07:22] LABS: HEMATOCRIT 27.4 % (42.0-52.0); HEMOGLOBIN 8.8 g/dl (13.5-18.0); MEAN CORPUSCULAR HEMOGLOBIN 32 pg (27.0-31.0)
[2019-02-25 07:30] LABS: INR 1.6 (0.8-3.0); PROTHROMBIN TIME 18.5 SECONDS (9.7-12.8)
--- NOTE | 2019-02-25 07:31 | NUR ---
Notified Sayra BECK of critical lab (WBC).
[2019-02-25 07:36] LABS: ALBUMIN 2.9 gm/dL (3.5-5.0); BILIRUBIN,TOTAL 1.2 mg/dL (0.0-1.0); CALCIUM 8.3 mg/dL (8.4-10.2); CREATININE, serum 0.73 (0.66-1.25); MAGNESIUM 2.7 mg/dL (1.6-2.3); POTASSIUM 3.2 mmol/L (3.4-5.0); TOTAL PROTEIN 5.7 gm/dL (6.4-8.2)
--- NOTE | 2019-02-25 08:00 | NUR ---
Patient in bed resting. Answeres only yes or no questions. Ecchymosis noted to right hip. Patient on oxymask at 6L. PICC line to FANNIE without complications. Tele in place. Will continue to monitor.
[2019-02-25 08:41] LABS: ANISOCYTOSIS 1+; HYPOCHROMIA 1+; LYMPHOCYTE 2 % (20.0-51.0); NEUTROPHILS 95 % (42.0-75.2); PLATELET ESTIMATE INCREASED (NORMAL); TOXIC GRANULATION PRESENT
--- NOTE | 2019-02-25 10:00 | NUR ---
Bladder scanned patient for 737 ml of urine in bladder. Straight cathed patient for 750 ml per orders.
--- NOTE | 2019-02-25 10:55 | NUR ---
Shackler was notified by Elliot of [facility] that they can accept patient for LTAC. Patient has not met the Medicare requirement of three midnights on tele at this time, so earliest patient could discharge to [facility] would be Thursday. RODY contacted patient's son, Yaya to provide update. RODY will continue to follow.
--- NOTE | 2019-02-25 11:35 | NUR ---
Notified Sayra EBCK, patient tachycardic, rechecked vitals on patient.
--- NOTE | 2019-02-25 11:37 | NUR ---
CALLED DR GIVENS TO ENSURE HE WAS AWARE OF PATIENT BEING TACHYCARDIC AND HAVING SOME RHYTHM CHANGES. DR GIVENS IN PATIENT'S ROOM AT THE TIME OF ME CALLING HIM.
--- NOTE | 2019-02-25 11:45 | NUR ---
PT CURRENTLY IN AFIB WITH RVR AT RATE OF 170-200. RN AND DR GIVENS AWARE.
[2019-02-25 12:41] LABS: TROPONIN-I 0.051 ng/mL (0.000-0.035)
--- NOTE | 2019-02-25 13:14 | NUR ---
Metalworker attended clinical rounds with the team. Patient to transfer to [facility]. SW to continue to follow.
--- NOTE | 2019-02-25 14:47 | NUR ---
Patient down to ICU.
--- NOTE | 2019-02-25 16:00 | NUR ---
PT HAS PETECHIA ON BILAT ARMS AND CHEST. WAS PRESENT WHEN PT WAS TRANSFERRED DOWN TO ICU.
--- NOTE | 2019-02-25 17:17 | NUR ---
14F COUDE INDWELLING CARDOZO CATHETER INSERTED. PT TOLERATED WELL. INTIAL OUTPUT 75ML URINE.
--- NOTE | 2019-02-25 19:45 | NUR ---
Bedside report received from NONA Perez. Tamara confirmed. Transfer of care at this time.
--- NOTE | 2019-02-25 19:50 | NUR ---
REPORT GIVEN TO NONA DIALLO.
--- NOTE | 2019-02-25 20:00 | NUR ---
HEEL PROTECTORS WERE APPLIED TO PTS BILAT FEET.
--- NOTE | 2019-02-25 20:00 | NUR ---
Patient awake in bed and calm. Patient's son, Yaya, and DIL, Tierney, at the bedside. Yaya states that patient is almost entirely nonverbal and he doesnt respond to questions appropriately even when at home. From previous shift, sometimes answers yes and no questions. Patient has BiPAP on and is tolerating well. Unclear on pain status as patient is not answering questions at this time. Assessment complete. Lungs are clear bilaterally with diminished bases. HR and rhythm regular with normal S1 and S2. Bowel sounds active x4. Pulses palpable in all extremities. Patient repositioned for comfort. No further needs at this time. Will continue to monitor. Call light within reach.
[2019-02-26] VITALS (695 sets, daily range): BP systolic 102–132; BP diastolic 62–66; PULSE 57–69; TEMP 97.4–97.9; O2SAT 43–100
--- NOTE | 2019-02-26 | NUR ---
Patient awake and agitated at this time. He has pulled off his gown and all his lines and is trying to get out of bed. Morphine and ativan provided and patient calmed down shortly after. Patient still awakens to name and fusses with the blankets. Assessment complete. No changes from previous exam. Vitals obtained and remain stable. Patient has no further needs at this time. Will continue to monitor. Call light within reach.
--- NOTE | 2019-02-26 04:00 | NUR ---
Patient sleeping at this time but awakens to name and spontaneously to pull his blankets up or adjust the bipap mask. Patient appears comfortable. Assessment complete with no changes from previous exam. Patient has had low urine output for the shift, will contact [facility] and see what recommendations they have. No further needs at this time. Will continue to monitor. Call light within reach.
[2019-02-26 05:50] LABS: MEAN CELL VOLUME 100 fl (80.0-100.0); MEAN CORPUSCULAR HGB CONC 32 g/dl (33.0-37.0); MEAN PLATELET VOLUME 9.9 fl (7.4-10.4); RED BLOOD COUNT 2.55 M/mm3 (4.20-5.60); REDCELL DISTRIBUTION WIDTH-CV 15.4 % (11.5-14.5)
[2019-02-26 05:51] LABS: HEMATOCRIT 25.6 % (42.0-52.0); HEMOGLOBIN 8.2 g/dl (13.5-18.0); MEAN CORPUSCULAR HEMOGLOBIN 32 pg (27.0-31.0); PLATELET COUNT 410 K/mm3 (130-400)
[2019-02-26 05:58] LABS: CREATININE, serum 0.79 (0.66-1.25); MAGNESIUM 2.6 mg/dL (1.6-2.3); POTASSIUM 3.7 mmol/L (3.4-5.0)
[2019-02-26 07:15] LABS: BAND 2 % (0-10); LYMPHOCYTE 5 % (20.0-51.0); NEUTROPHILS 93 % (42.0-75.2); PLATELET ESTIMATE INCREASED (NORMAL)
--- NOTE | 2019-02-26 07:45 | NUR ---
Bedside report given to NONA Gan. All drips confirmed. Transfer of care at this time.
--- NOTE | 2019-02-26 09:50 | NUR ---
Dr. Santo rounds at this time. Orders as entered CPOE.
--- NOTE | 2019-02-26 12:12 | NUR ---
Vancomycin Initial Dosing Pharmacy Note Ordering provider: Dr. Bauman Indication/duration: empiric, PNA Relevant comorbidities: none LABS: WBC 21.8, SCr 0.79, CrCl ~40 Recommendation: VANCOMYCIN 15 MG/KG Loading dose: vancomycin 1 g Maintenance dose: vancomycin 750 mg every 24 hours Trough goal: 15-20 ug/mL
--- NOTE | 2019-02-26 13:15 | NUR ---
Dr. Weaver rounds at this time. No new orders recieved.
[2019-02-26 13:24] LABS: PHOSPHOROUS 2.6 mg/dL (2.5-4.5)
[2019-02-26 13:39] LABS: ARTERIAL BLD GAS O2 SATURATION 90.2 % (92-100); ARTERIAL BLD GAS TCO2 CT 25.6; ARTERIAL BLOOD GAS BASE EXCESS 2.1 (-2-2); ARTERIAL BLOOD GAS HCO3 24.7 meq/L (22-26); ARTERIAL BLOOD GAS PCO2 30.4 mmHg (35-45); ARTERIAL BLOOD GAS PO2 55.8 mmHg (80-100); ARTERIAL BLOOD GAS pH 7.53 (7.35-7.45)
--- NOTE | 2019-02-26 14:45 | NUR ---
Dr. Cronin rounds at this time. CPOE orders to transition to PO amiodarone this evening.
--- NOTE | 2019-02-26 17:11 | NUR ---
Patient with saturations 86% with corresponding waveform. Dr. Bauman notified and VORB to increase FiO2 to 45%. Completed and RT notified.
--- NOTE | 2019-02-26 19:10 | NUR ---
Bedside report received from NONA Gan. All drips confirmed. Transfer of care at this time.
--- NOTE | 2019-02-26 20:00 | NUR ---
Patient resting on BiPAP. Patient stirs in bed to stimulus. Assessment complete. Patients lungs are clear in all mendez with diminished bases. HR and rhythm are regular, he is bradycardic while sleeping. Bowel sounds active x4. Patient's pulses are palpable in all extremities. Will let patient continue to rest. Call light within reach.
--- NOTE | 2019-02-26 21:00 | NUR ---
Patient awake at this time and pulling at all lines and has pulled the BiPAP off. Placed OM at 12L. Patient has had a BM. Cleaned patient and given a bath. New bedding provided. Sat patient upright and pills taken with some pudding and water. When asked questions patient responds to everything with "yes". He follows a few very basic commands, but otherwise has no interest and continues to try to get up and pull at anything he can. Patient given morphine and ativan. Patient did appear to be in pain, especially with movement of the right leg. Patient starts to calm down shortly after. BiPAP replaced. Will continue to monitor.
[2019-02-27] VITALS (531 sets, daily range): BP systolic 110–148; BP diastolic 65–75; PULSE 61–75; TEMP 97.8–98.4; O2SAT 76–100
--- NOTE | 2019-02-27 | NUR ---
Patient sleeping, but stirs when touched. Assessment complete. Lungs are the same except for some wheezes in the lower lobes. HR and rhythm remain the same. Bowel sounds active x4. No changes from previous exam. Will continue to monitor.
--- NOTE | 2019-02-27 03:49 | NUR ---
PTS SATURATIONS WERE DROPPING DESPITE BEING ON BIPAP WITH A GOOD SEAL. FI02 WAS INCREASED FROM 45% TO 50%, PT SATURATIONS STILL REMAINED LOW CHANGED BIPAP SETTINGS FROM /5 T0 / WITH THE FI02 AT 55%. AFTER THAT CHANGE THE PTS SATURATIONS BEGAN TO COME UP AND STAY IN THE MID 90'S WITH A GOOD WAVEFORM. PT IS JERO BIPAP WELL AND THE CHANGES WELL WITH NO DISTRESS NOTED AT THIS TIME. WILL CONTINUE TO MONITOR AND ASSESS PT.
--- NOTE | 2019-02-27 04:00 | NUR ---
Patient continues to sleep. Is responsive to stimuli and then falls back asleep. Assessment complete with no changes from previous exam except that bases bilaterally have rhonchi. Vitals have remained stable. Will continue to monitor. Call light within reach.
[2019-02-27 06:14] LABS: MEAN CELL VOLUME 103 fl (80.0-100.0); MEAN CORPUSCULAR HGB CONC 32 g/dl (33.0-37.0); MEAN PLATELET VOLUME 10.1 fl (7.4-10.4); PLATELET COUNT 329 K/mm3 (130-400); RED BLOOD COUNT 2.44 M/mm3 (4.20-5.60); REDCELL DISTRIBUTION WIDTH-CV 15.7 % (11.5-14.5)
[2019-02-27 06:22] LABS: CALCIUM 7.7 mg/dL (8.4-10.2); CREATININE, serum 0.7 (0.66-1.25); MAGNESIUM 2.5 mg/dL (1.6-2.3); POTASSIUM 3.9 mmol/L (3.4-5.0)
[2019-02-27 06:35] LABS: HEMOGLOBIN 7.9 g/dl (13.5-18.0); MEAN CORPUSCULAR HEMOGLOBIN 32 pg (27.0-31.0)
--- NOTE | 2019-02-27 07:15 | NUR ---
Bedside report given to NONA Mao.
[2019-02-27 11:52] LABS: ANISOCYTOSIS 1+; BAND 12 % (0-10); EOSINOPHIL 2 % (0-4); HYPOCHROMIA 1+; LYMPHOCYTE 2 % (20.0-51.0); NEUTROPHILS 81 % (42.0-75.2)
[2019-02-27 11:53] LABS: PLATELET ESTIMATE NORMAL (NORMAL)
--- NOTE | 2019-02-27 17:36 | NUR ---
PT HAD SMALL, SOFT, BROWN BM. CLEANED PATIENT UP AND CHANGED LINENS.
--- NOTE | 2019-02-27 18:55 | NUR ---
RECEIVED REPRT FROM NONA AN. PT RESTING EASILY IN BED. BIPAP ON AND VSS. NO ACUTE S/S OF RESP DISTRESS NOTED. CALL LIGHT WITHIN REACH. IV FLUIDS AND TPN INFUSING WITHOUT DIFFICULTIES. FC PATENT AND DRAINING TO GRAVITY.
--- NOTE | 2019-02-27 23:30 | NUR ---
ATIVAN GIVEN. RASS +2. PT AGITATED AND TRYING TO CLIMB OUT OF BED AND PULLING AT LINES. MULTIPLE ATTEMPTS MADE TO CALM PT, UNSUCESSFUL. PT ABLE TO SAY YES WHEN ASKED IF HE WANTS A DRINK OF WATER. PT ABLE TO TAKE A SMALL SIP WITH BIPAP OFF BRIEFLY. POX MAINTAINS >90% FOR A FEW MINUTES WHILE PT GETS A BREAK FROM THE MASK AND TAKES A DRINK. PT CALMS DOWN AFTER ATIVAN ADMINISTRATION BUT OPENS EYES TO NAME CALLED. FC PATENT AND DRAINING TO GRAVITY.CALL LIGHT WITHIN REACH. BEDALARM IN PLACE. VSS.
[2019-02-28] VITALS (15 sets, daily range): BP systolic 134–153; BP diastolic 63–76; PULSE 66–87; TEMP 97.9–98.6; O2SAT 80–96
--- NOTE | 2019-02-28 04:09 | NUR ---
RT AT BEDSIDE FOR TX.
[2019-02-28 05:43] LABS: MEAN CELL VOLUME 100 fl (80.0-100.0); MEAN CORPUSCULAR HGB CONC 32 g/dl (33.0-37.0); MEAN PLATELET VOLUME 10.4 fl (7.4-10.4); PLATELET COUNT 294 K/mm3 (130-400); RED BLOOD COUNT 2.68 M/mm3 (4.20-5.60); REDCELL DISTRIBUTION WIDTH-CV 15.9 % (11.5-14.5)
[2019-02-28 05:52] LABS: CALCIUM 7.5 mg/dL (8.4-10.2); CREATININE, serum 0.55 (0.66-1.25); HEMATOCRIT 26.9 % (42.0-52.0); HEMOGLOBIN 8.5 g/dl (13.5-18.0); MAGNESIUM 2.3 mg/dL (1.6-2.3); MEAN CORPUSCULAR HEMOGLOBIN 32 pg (27.0-31.0); POTASSIUM 3.8 mmol/L (3.4-5.0)
[2019-02-28 06:13] LABS: BAND 10 % (0-10); LYMPHOCYTE 1 % (20.0-51.0); METAMYELOCYTE 1 % (0-0); NEUTROPHILS 87 % (42.0-75.2); PLATELET ESTIMATE NORMAL (NORMAL)
--- NOTE | 2019-02-28 08:15 | NUR ---
PICC intact right upper arm with sterile dressing change done with insertion site cleansed with chloraprep x 1, chlorhexidine impregnated disk applied, skin prep, stat lock, and tegaderm applied. no signs or symptoms of IV complications noted. no concerns voiced. re-wrapped with kelvin to protect catheter. patient is being transferred to [facility] today.
--- NOTE | 2019-02-28 08:30 | NUR ---
PT ALERT THIS AM. MAKING INCOMPREHINSIBLE SOUNDS, NO DIFFERENT THAN THURSDAY WHEN PT WAS LAST SEEN BY ME ON SHIFT. VSS. PT IS DEPENDENT ON BIPAP HE CANNOT MAINTIAIN O2 SATURATION WITHOUT IT. PT GIVEN PILLS THIS AM CRUSHED WITH YOGURT AND SWALLOWED WITHOUT DIFFICULTY (PT SITTING UP AT 90 DEGREES). PT REMAINED AT 90 DEGREES FOR ONE HOUR FOLLOWING ADMINISTRATION OF PILLS.
--- NOTE | 2019-02-28 11:31 | NUR ---
AGENCY RECRUITER student presented the IM form to the patient's DPOA-HC/son Pita. Pita understood and signed the form and did not want a copy. The original was placed in the patient's chart. director learning services will continue to follow.
--- NOTE | 2019-02-28 12:00 | NUR ---
PT REPEATEDLY PULLING OFF BIPAP. PT ALSO PULLING OFF LEADS, LEADS REPLACED. ATTEMPTED TO MAKE PT MORE COMFORTABLE BY REPOSITIONING; PT CONTINUES TO PULL OFF BIPAP. PTS SON IN ROOM AND REMINDING PT TO LEAVE BIPAP ALONE.
--- NOTE | 2019-02-28 13:35 | NUR ---
The patient is to discharge this day, 02/28 to [facility] in [place] to room 116. Receiving physician is Dr. Angelo, number for report . Discharge orders faxed to . MAIL SORTING SUPERVISOR student faxed updates to Elliot. [facility] to transport patient at 1300. MAIL SORTING SUPERVISOR student notified the patient's DPOA-HC/son Pita and the patient's nurse, and Elliot of transport time. All were in agreeance. There are no additional needs at this time.
--- NOTE | 2019-02-28 14:13 | NUR ---
PT LEFT WITH [facility] ON STRETCHER WITH PERSONAL BELONGINGS AND ON BIPAP.
--- NOTE | 2019-02-28 15:03 | NUR ---
REPORT: [facility] CALLED BACK AND REPORT GIVEN TO NONA STEELE AT [place], [place].
== END 2019-02-28 14:13 | DRG 480 ==
LOC: COL.ER 04:06 → JCC 04:42 → ICU 04:42 → SURG 04:42 → ICU 02-25 15:00
PROVIDERS: Emergency Medicine; Internal Medicine; Internal Medicine Pulmonary Disease; Orthopaedic Surgery; Physician Assistant; Student in an Organized Health Care Education/Training Program; ADMIT Nurse Practitioner Family
PROC: 02HV33Z Insertion of Infusion Device into Superior Vena Cava, Percutaneous Approach (ICD-10-PCS; 2019-02-16)
PROC: 0QS606Z Reposition Right Upper Femur with Intramedullary Internal Fixation Device, Open Approach (ICD-10-PCS; principal; 2019-02-16 13:00)
DX: S72.001A Fracture of unspecified part of neck of right femur, initial encounter for closed fracture (principal); J69.0 Pneumonitis due to inhalation of food and vomit; I21.A1 Myocardial infarction type 2; J96.01 Acute respiratory failure with hypoxia; J90 Pleural effusion, not elsewhere classified; I10 Essential (primary) hypertension; K21.9 Gastro-esophageal reflux disease without esophagitis; G30.9 Alzheimer's disease, unspecified; D50.0 Iron deficiency anemia secondary to blood loss (chronic); I69.120 Aphasia following nontraumatic intracerebral hemorrhage; Z66 Do not resuscitate; I69.922 Dysarthria following unspecified cerebrovascular disease; W18.30XA Fall on same level, unspecified, initial encounter; F02.80 Dementia in other diseases classified elsewhere, unspecified severity, without behavioral disturbance, psychotic disturbance, mood disturbance, and anxiety; N40.1 Benign prostatic hyperplasia with lower urinary tract symptoms; R33.8 Other retention of urine; J43.9 Emphysema, unspecified; I48.91 Unspecified atrial fibrillation; Y92.002 Bathroom of unspecified non-institutional (private) residence as the place of occurrence of the external cause; R41.0 Disorientation, unspecified; Z87.891 Personal history of nicotine dependence; Y93.9 Activity, unspecified; Z88.0 Allergy status to penicillin; Z88.1 Allergy status to other antibiotic agents
CPT/HCPCS: 99223-AI; 99231-AI; 99232-AI; 99233-AI; 99239; A4216; A4217; A4314; A9284; C1713; C1751; C1769; J0282; J0610; J0692; J1940; J2060; J2185; J2270; J2405; J2920; J2930; J3370; J3480; J7030; J7040; J7050; J7060; J7131; P9016; Q9967